=== PATIENT | male | born 2000 | race Caucasian/White ===

== ENCOUNTER 2022-03-27 11:26 | Day surgery (SDC) | payer BC, SELFPAY ==
[2022-03-27] VITALS (9 sets, daily range): BP systolic 132–153; BP diastolic 68–88; PULSE 92–120; RESP 16–20; TEMP 36.2–37.5; O2SAT 97–100; BMI 29.4
[2022-03-27 11:42] LABS: Coronavirus 19, PCR Not Detected (NotDetected); Influenza A, PCR Not Detected (NotDetected); Influenza B, PCR Not Detected (NotDetected)
--- NOTE | 2022-03-27 12:23 | P.PN_ITS ---
[facility] Anesthesia Checklist - Patient Identification Patient Identification: Arm Band - Structural Data Admitted From: Home Planned Operative Procedure/s: Excision pilonidal cyst Consent for Planned Operative Procedure(s) Verified: Yes - NPO Status Verified Time NPO: 07:00 (Water) - Additional verifications Anesthesia Reactions: No Hx Blood Transfusions: No Blood Transfusion Reaction: No - Airway Assessment C-Spine Mobility Assessed: Yes TMJ Mobility Assessed: Yes Dentition: Good Dentition - Neurological Assessment Level of Consciousness: Awake Hx Seizures: No Numbness or tingling in extremities: No - Anesthesia Plan Anesthesia Risk discussed: Yes Anesthesia Plan: Verified ASA Class: I Anesthesia Type: General [facility] History I have reviewed the patient's past medical history: Yes Medical History: Denies:: Cancer, Diabetes Mellitus Type 1, Diabetes Mellitus Type 2, Internal Pacemaker, MRSA, Seizures *Have you ever received a pneumonia vaccine?: No *Have you received a flu vaccine this season?: No Other Medical History: Denies: Blood Transfusion Reaction Anesthesia experience/problems:: None Other Surgeries: Yes: No Previous Surgery. No: Pacemaker Amputation: No Fractures: No - *Social History Last grade of school completed: 11th or 12th Smoking Status: Current every day smoker Tobacco Type: e-cigarettes # Packs/Day (cigarettes): 1 Alcohol Intake: never Alcohol Intake Frequency:: holidays/special occasions only Substance Use Type: denies use *Occupational Status:: employed Housing: house *Travel in the last 8 weeks: [place] the [employer] Family Hx:: Diabetes
--- NOTE | 2022-03-27 13:03 | HMH.OPNOTE ---
Date of procedure: 03/27/22 Pre-op Diagnosis:: Abscessed pilonidal Post-op Diagnosis:: Same Procedure performed:: Incision and drainage of abscessed pilonidal cyst Surgeon:: Michele King MD BI REPORT DEVELOPER:: Abby Hester Anesthesia: LMA Estimated blood loss (mL): 10 Operative findings:: Pilonidal abscess with purulence and hair within pocket (deviation just to the right of midline) Operative note:: After informed consent was obtained the patient was taken to the operating room and placed in the supine position. General anesthesia with laryngeal mask airway was achieved. He was transferred to the right lateral decubitus position. His buttock cleft region was prepped and draped in a sterile fashion. An elliptical incision was made around the central portion of the abscess cavity. Purulence and hair was evacuated. The wound was packed with dry gauze and the entire region was infiltrated with 1% lidocaine. Dressings were applied and the patient was transferred to recovery in stable condition. Condition: stable Disposition: PACU Specimens:: None Complications:: No immediate
--- NOTE | 2022-03-27 13:08 | HMH.ANESI ---
[facility] Anesthesia Record Part I Intake, IV Amount: 600 Estimated blood loss (mL): 10 Urine output (mL): 0 Blood Pressure: 153/68 SaO2: 99 Pulse Rate: 92 Respiratory Rate: 20 Temperature: 97.9 F Patient is:: Awake Stable to PACU at:: 13:02
--- NOTE | 2022-03-27 13:40 | PC.NURSE ---
1331-detailed report given to OSMIN Al 1333-pt transported to post op via stretcher w/tami rails up and left in care of OSMIN Al with bed locked in lowest position, vss, pt stable
--- NOTE | 2022-03-29 07:45 | P.PN_ITS ---
[facility] Anesthesia Record Part II Discharge Time: 13:32 Destination: Home PACU nurse assessment reviewed?: Yes Patient Condition:: Good Anesthesia Complications:: None Swallowing reflex intact?: Yes Cyanosis?: No Blood Pressure: 138/88 Pulse Rate: 102 Temperature: 97.6 F Mental Status: Alert & Oriented Pain level:: 0 Nausea and/or vomitting:: None Intake, IV Amount: 0
[2022-03-29 07:47] VITALS: BP 138/88; PULSE 102; TEMP 36.4
== END 2022-03-27 14:03 | disposition home or self-care (01) ==
LOC: OR 11:28
PROVIDERS: PCP Family Medicine; Visit Provider Surgery
PROC: (CPT 10081; principal; 2022-03-27 12:30)
DX: L05.01 Pilonidal cyst with abscess (principal); Z72.0 Tobacco use
CPT/HCPCS: 10081; 96374; C9803; U0003; U0005

== ENCOUNTER 2024-05-27 08:53 | Outpatient (CLI) | payer OTHER, SELFPAY ==
--- NOTE | 2024-05-27 08:54 | US_ITS ---
FINAL REPORT TECHNIQUE: Ultrasound images of the testicles were obtained bilaterally. Color Doppler images were obtained. CLINICAL HISTORY: .LT TESTICLE PAIN COMPARISON: None FINDINGS: The testicles are normal in size. The testicular parenchyma is homogeneous. There is a 4 mm right epididymal cyst. There are tiny echogenic foci in both testes probably due to testicular microlithiasis. A moderate left varicocele is noted. IMPRESSION: Moderate left varicocele. Testicular microlithiasis. Cyst in the head of the right epididymis. Reviewed, Interpreted and Dictated by Oleg Ramey MD Transcribed by Jyotsna Delgado Authenticated and . [facility]
== END 2024-05-27 23:59 | disposition home or self-care (01) ==
LOC: RAD 08:54
PROVIDERS: PCP Family Medicine; Visit Provider Nurse Practitioner
DX: N50.812 Left testicular pain (principal)
CPT/HCPCS: 76870

== ENCOUNTER 2024-06-25 10:31 | Day surgery (SDC) | payer OTHER, SELFPAY ==
[2024-06-25] VITALS (9 sets, daily range): BP systolic 115–159; BP diastolic 81–110; PULSE 89–125; RESP 16–18; TEMP 36.5–37.6; O2SAT 95–98; BMI 31.5
[2024-06-25] MEDS: LACTATED RINGERS 1000ML 1,000 ML 25 ML IV (11:33)
--- NOTE | 2024-06-25 12:08 | EXP.ANES.CKL ---
[facility] Disclaimer: The information contained in this section may have been updated after the patient was seen, as this information can be updated by other users. 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 caffeine: Yes [facility] Anesthesia Checklist Patient Identification Patient Identification: Arm Band and Verbal (Name & ) Structural Data Admitted From: Home Planned Operative Procedure/s: I & D pilonidal cyst Consent for Planned Operative Procedure(s) Verified: Yes Verified Documents: Surgical Consent and History and Physical NPO Status Verified Time NPO: 00:00 Additional verifications Anesthesia Reactions: No Hx Blood Transfusions: No Blood Transfusion Reaction: No Airway Assessment Mallampati Score:: Class I C-Spine Mobility Assessed: Yes TMJ Mobility Assessed: Yes Dentition: Good Dentition Neurological Assessment Level of Consciousness: Awake Hx Seizures: No Numbness or tingling in extremities: No Anesthesia Plan Anesthesia Risk discussed: Yes Anesthesia Plan: Verified ASA Class: II Anesthesia Type: General
[2024-06-25] MEDS: METRONIDAZ/SOD CHL 500 MG/100 ML PIGGYBACK 100 MG IV (12:45)
[2024-06-25] MEDS: CEFAZOLIN SODIUM 2 GM in 0.9 % SODIUM CHLORIDE 100 ML IV (12:45)
--- NOTE | 2024-06-25 12:45 | P.OP_ITS ---
Date of procedure: 06/25/24 Pre-op Diagnosis:: Pilonidal cyst with abscess Post-op Diagnosis:: Same Procedure performed:: Incision and drainage of pilonidal cyst with abscess Surgeon:: Michele King MD THREADING MACHINE OPERATOR:: Ronan Miranda Anesthesia: local and LMA Estimated blood loss (mL): 5 Operative findings:: Pilonidal abscess with marginal necrotic slough Operative note:: After informed consent was obtained the patient was taken to the operating room and placed in the supine position. General anesthesia with laryngeal mask airway was achieved. He was transferred to the right lateral decubitus position. His buttock cleft region was prepped and draped in a sterile fashion. After infiltration with local anesthetic an elliptical incision was made around the central portion of the abscess. An additional punctum along the superior margin was noted. The punctum was found to have impacted hair which was removed. Electrocautery was utilized to extend the incision cephalad to the margin of the punctum. The incision was extended in a caudal direction to include all necrotic tissue. The cavity was evacuated. Electrocautery was utilized to achieve hemostasis. The cavity was packed with gauze which was then infiltrated with 1% lidocaine. Dressings were applied and the patient was transferred to recovery in stable condition after removal of his laryngeal mask airway. Condition: stable Disposition: PACU Specimens:: None for pathology Complications:: No immediate
[2024-06-25] MEDS: LIDOCAINE 1% 20ML MDV 20 ML (13:03)
[2024-06-25] MEDS: MORPHINE 2MG/ML SYRINGE 1 MG IV ×2 (13:30→13:45)
--- NOTE | 2024-06-25 13:40 | EXP.ANES.I ---
[facility] Anesthesia Record Part I Anesthesia Record I Intake, IV Amount: 500 Hydration: Adequate Estimated blood loss (mL): 5 Urine output (mL): 0 Blood Products used (#): none Blood Pressure: 123/96 SaO2: 96 Pulse Rate: 125 Airway Patency: Patent Respiratory Rate: 16 Temperature: 97.7 F Patient is:: Drowsy and Stable
[2024-06-25] MEDS: KETOROLAC 30MG/ML VIAL 30 MG IV (14:00)
--- NOTE | 2024-06-26 08:33 | EXP.ANES.II ---
[facility] Anesthesia Record Part II Anesthesia Record Part II Discharge Time: 13:56 Destination: Surgical Day Care (OP Surgery) PACU nurse assessment reviewed?: Yes Patient Condition:: Good Anesthesia Complications:: None Swallowing reflex intact?: Yes Airway Patency: Patent Cyanosis?: No Blood Pressure: 153/101 SaO2: 98 Respiratory Rate: 16 Pulse Rate: 89 Temperature: 97.7 F Mental Status: Alert & Oriented Pain level:: 3 Nausea and/or vomitting:: None Intake, IV Amount: 0 Hydration: Adequate
[2024-06-26 08:34] VITALS: BP 153/101; PULSE 89; RESP 16; TEMP 36.5; O2SAT 98
== END 2024-06-25 14:50 | disposition home or self-care (01) ==
PROVIDERS: PCP Family Medicine; Visit Provider Surgery
PROC: (CPT 10080; principal; 2024-06-25 12:30)
DX: L05.01 Pilonidal cyst with abscess (principal)
CPT/HCPCS: 10080; 96374; J0690; J1885; J2250; J2270; J3010; J7120